=== PATIENT | female | born 1990 | race African-American/Black ===

== ENCOUNTER 2018-03-26 14:10 | Emergency (ER) | payer OTHER ==
[~2018-03-26] VITALS: Ht 162.6 cm; Wt 65.5 kg
[2018-03-26] MEDS ORDERED: METH1TAB40 PO (14:23)
[2018-03-26] MEDS ORDERED: NAPR-885 PO (14:23)
[2018-03-26] MEDS ORDERED: FLAG500T PO (17:40)
[2018-03-26 17:45] VITALS: BP 128/76
[2018-03-26] MEDS ORDERED: DIFL150T PO (17:50)
[2018-03-26 18:47] LABS: CHLAMYDIA DNA AMPLIFICATION POSITIVE (NEGATIVE); GC DNA AMPLIFICATION NEGATIVE (NEGATIVE)
== END 2018-03-26 17:55 | disposition home or self-care (01) ==
LOC: M ED 14:10
DX: N76.0 Acute vaginitis (principal); Z79.1 Long term (current) use of non-steroidal anti-inflammatories (NSAID); Z79.899 Other long term (current) drug therapy

== ENCOUNTER 2018-09-22 12:42 | Inpatient (IN) | payer OTHER ==
[~2018-09-22] VITALS: Ht 162.6 cm; Wt 71.8 kg
[~2018-09-22 12:42] MED LIST: DIFL150T PO; FLAG500T PO; METH1TAB40 PO; NAPR-885 PO
[2018-09-22] MEDS ORDERED: LEXA1TAB PO (12:51)
[2018-09-22] MEDS ORDERED: HYDR-3363 PO (12:51)
[2018-09-22 13:17] LABS: HEMATOCRIT 33.7 % (36.0-47.0); HEMOGLOBIN 10.4 g/dl (12.0-15.5); MEAN CORPUSCULAR HEMOGLOBIN 26.3 pg (27.0-33.0); MEAN CORPUSCULAR HGB CONC 30.9 g/dl (32.0-36.5); MEAN CORPUSCULAR VOLUME 85.3 fl (80.0-96.0); PLATELET COUNT, AUTOMATED 299 10^3/uL (150-450); RED BLOOD COUNT 3.95 10^6/uL (4.00-5.40); WHITE BLOOD COUNT 6.3 10^3/uL (4.0-10.0)
[2018-09-22 13:41] LABS: HCG, SERUM QUALITATIVE NEGATIVE (NEGATIVE)
[2018-09-22 13:51] LABS: ACETAMINOPHEN LEVEL < 2.0 UG/ML (10.0-30.0); ALT/SGPT 12 U/L (12-78); BILIRUBIN,DIRECT 0.2 MG/DL (0.0-0.2); BILIRUBIN,TOTAL 0.4 MG/DL (0.2-1.0); BLOOD UREA NITROGEN 10 MG/DL (7-18); CALCIUM LEVEL 9.1 MG/DL (8.5-10.1); CARBON DIOXIDE LEVEL 26 MEQ/L (21-32); CHLORIDE LEVEL 107 MEQ/L (98-107); ETHYL ALCOHOL (ETHANOL) < 0.003 % (0.000-0.010); GLOMERULAR FILTRATION RATE > 60.0 (>60); GLUCOSE, FASTING 79 MG/DL (70-100); POTASSIUM SERUM 3.6 MEQ/L (3.5-5.1); SALICYLATE LEVEL 2.1 MG/DL (5.0-30.0); SODIUM LEVEL 140 MEQ/L (136-145); THYROID STIMULATING HORMONE 0.406 uIU/ML (0.358-3.740); TOTAL PROTEIN 7.7 GM/DL (6.4-8.2)
[2018-09-22] MEDS ORDERED: TRAZ10TA PO (14:01)
[2018-09-22] MEDS ORDERED: LIDOCAINE 2% 5ML JELLY UROJET TOP ONE (14:45)
[2018-09-22 17:18] LABS: AMPHETAMINES LEVEL URINE NEGATIVE (NEGATIVE); BARBITURATES URINE NEGATIVE (NEGATIVE); BENZODIAZEPINES URINE NEGATIVE (NEGATIVE); CANNABINOIDS URINE NEGATIVE (NEGATIVE); COCAINE METABOLITE URINE NEGATIVE (NEGATIVE); METHADONE URINE NEGATIVE (NEGATIVE); OPIATES URINE NEGATIVE (NEGATIVE); PHENCYCLIDINE URINE NEGATIVE (NEGATIVE)
[2018-09-22] MEDS ORDERED: MOM 30ML SUSPENSION UDC PO PRN (17:45)
[2018-09-22] MEDS ORDERED: MAALOX 30 ML SUSP *UDC PO PRN (17:45)
[2018-09-22] MEDS ORDERED: traZODone 50 MG TAB PO PRN (17:45)
[2018-09-22] MEDS ORDERED: ACETAMINOPHEN TAB 650MG DOSE (2X325MG) PO PRN (17:45)
[2018-09-22 23:14] VITALS: BP 115/75
[2018-09-23 06:41] VITALS: BP 108/53
--- NOTE | 2018-09-23 09:13 | HPEPDOC ---
General Date of Admission Sep 22, 2018 at 17:44 Date of Service: Sep 23, 2018 Attending Physician: TAE OG MD Chief Complaint The patient is a 28-year-old female admitted with a reason for visit of MHE. History of Present Illness [place] Patient is a 28-year-old female, active duty , admitted to inpatient psychiatric unit on account of severe depression. According to mental health HPI "Julieta is a 28 -year-old , female, who was transported from [facility] via EMS due to Julieta apparently having a acute exacerbation of her depression. Per her therapist, Julieta reported feeling like she didn't want to live anymore, that she does not feel safe, and that she has anhedonia, poor motivation, insomnia, racing thoughts, and general feelings of emotional numbness. Once admitted Julieta began denying any past or current SI/HI and just elaborated that she was having a bad day. Per ED, Julieta admitted to having a history of depression and anxiety related to her enlistment with the [employer]. 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 Home Medications Scheduled Escitalopram Oxalate (Lexapro) 10 Mg Tablet, 30 MG PO DAILY, (Reported) Scheduled PRN Hydroxyzine HCl (Hydroxyzine HCl) 25 Mg Tablet, 50 MG PO QID PRN for ANXIETY, (Reported) Trazodone HCl (Trazodone HCl) 100 Mg Tablet, 100 MG PO QHS PRN for SLEEP, (Reported) Allergies Coded Allergies: latex (Verified Allergy, Mild, Rash and Itching, 09/22/18) A-FIB/CHADSVASC A-FIB History Current/History of A-Fib/PAF?: No Current PO Anticoag Therapy: No Review of Systems Other systems Examination was declined by patient Physical Examination Other physical findings Examination was declined by patient Vital Signs Vital Signs Date Time Temp Pulse Resp B/P (MAP) Pulse Ox O2 Delivery O2 Flow Rate FiO2 09/23/18 06:41 98.7 70 16 108/53 (71) 09/22/18 23:14 98 09/22/18 14:05 Room Air Laboratory Data Labs 24H Laboratory Tests 2 09/22/18 13:03: Nucleated Red Blood Cells % (auto) 0.0, Anion Gap 7L, Glomerular Filtration Rate > 60.0, Calcium Level 9.1, Aspartate Amino Transf (AST/SGOT) 10, Alanine Aminotransferase (ALT/SGPT) 12, Alkaline Phosphatase 55, Total Bilirubin 0.4, Direct Bilirubin 0.2, Total Protein 7.7, Albumin 4.0, Albumin/Globulin Ratio 1.08, Thyroid Stimulating Hormone (TSH) 0.406, Human Chorionic Gonadotropin, Qual NEGATIVE, Salicylates Level 2.1L, Acetaminophen Level < 2.0L, Ethyl Alcohol Level < 0.003 09/22/18 16:45: Urine Amphetamines Screen NEGATIVE, Urine Benzodiazepines Screen NEGATIVE, Urine Opiates Screen NEGATIVE, Urine Methadone Screen NEGATIVE, Urine Barbiturates Screen NEGATIVE, Urine Phencyclidine Screen NEGATIVE, Urine Cocaine Metabolite Screen NEGATIVE, Urine Cannabinoids Screen NEGATIVE CBC/BMP Laboratory Tests 09/22/18 13:03 Red Blood Count 3.95 L, Mean Corpuscular Volume 85.3, Mean Corpuscular Hemoglobin 26.3 L, Mean Corpuscular Hemoglobin Concent 30.9 L, Red Cell Distribution Width 18.2 H Assessment/Plan Admitted on account of depression Plan Medical examination evaluation was declined by patient At this time, it would seem patient has no acute medical problems or underlying comorbidities requiring active follow-up. Acute mental problems are managed by primary team Medical team will sign off, please re-consult as needed. Plan / VTE VTE Prophylaxis Ordered?: No VTE Exclusion Mechanical Proph: Low Risk for VTE TRAVON JARQUIN Sep 23, 2018 09:13
[2018-09-23] MEDS ORDERED: traZODone 100 MG TAB PO PRN (11:15)
[2018-09-23] MEDS ORDERED: hydrOXYzine 25 MG TAB PO PRN (11:15)
--- NOTE | 2018-09-23 11:29 | MHHPEPDOC ---
General Legal Status: 9.39 Chief Complaint "Got myself into a dark place. Might have filled out the wrong option on the depression screening form at [facility]. Therapist said I have to go to the hospital" History of Present Illness HISTORY OF THE PRESENT ILLNESS: Julieta is a 28 -year-old , female, who was transported from [facility] via EMS due to Julieta apparently having a acute exacerbation of her depression. Per her therapist, Julieta reported feeling like she didn't want to live anymore, that she does not feel safe, and that she has anhedonia, poor motivation, insomnia, racing thoughts, and general feelings of emotional numbness. Once admitted Julieta began denying any past or current SI/HI and just elaborated that she was having a bad day. Per ED, Julieta admitted to having a history of depression and anxiety related to her enlistment with the [employer]. She is currently an E1 despite 3 years of service due to having received multiple negative counseling evaluations. Julieta has been seeing [facility] for anxiety and depression. Psychiatric Review of Systems Depression (2 or more weeks): denies (history of depression and axiety but not currently feeling that way. ) Rosalie (4 or more days of): grandiosity Psychosis: denies, other PTSD: denies Anxiety: denies Past Psychiatric History Previous Psychiatric Diagnosis: Depression and Anxiety. Diagnosed by [facility] Previous Psychiatric Admissions: Denies Suicide Attempts: Denies Psychiatric Follow-up: [facility] Psychiatric medications: Currently on Hydroxyzine HCl 25mg tablets PRN, Escitalopram Oxalate 10mg tablets QD, and Trazodone HCl 100mg tablets PRN, Lexapro 10 mg TID Past Medical History Head Injury: No Seizures: No Hospitalizations: No Surgeries: Yes (tonsilectomy, wisdom teeth extraction) Family Medical/Psychiatric HX Psychiatric Disorders: No Addiction: No Suicide Attemps/Completions: No Addiction History denies Social History Childhood: Born in [facility]. Raised in [place] and [place], [place]. Describes childhood as "good". Raised in single mother household with her 3 other siblings. Abuse/Trauma: Denies Current Living Situation: [place]-post in [facility] Education: [employer], [employer], [employer]. [employer]. Employment: E1 (unit supply chain tech) for 2 years. Social Support: Friends around post. Goes to [facility]. Family is in [place]. Legal: Denies. Article 15 for 3 past negative counselling. Marital: Single and no children Mental Status Examination General Appearance: well groomed, hospital scubs/clothing Build: average Demeanor: average Eye Contact: average Activity: average Behavior: cooperative Speech: clear, rapid, normal volume Mood: euthymic, elevated Mood "i'm good" Affect: full Thought Process: logical/linear Thought Content (Delusions): none reported Thought Content (Other): none reported Thought Content (Aggressive): none reported Perception (Hallucinations): none reported Perception (Other): none reported Cognition (Impairment of): none reported Cognition(Intelligence Est.): average Oriented: Awake, Alert, Oriented times three Insight: fair Judgment: Fair Psychosis: Denies Diagnoses Unspecified depression and anxiety A-FIB/CHADSVASC A-FIB History Current/History of A-Fib/PAF?: No Current PO Anticoag Therapy: No Age/Risk Factor Scoring CHADSVASC: CHADSVASC Response (Comments) Value Age Risk Factor Age < 65 years old 0 Gender Risk Factor Female 1 Hx of CHF No 0 Hx of HTN No 0 Hx of Stroke/TIA/or VTE No 0 Hx of Diabetes No 0 Hx of Vascular Disease No 0 Total 1 Treatment Treatment ordered: NONE Reason Anticoagulant not given: Not indicated/Gevaz1iefd Assessment Julieta states that she was in "a dark place" yesterday when she went to her therapist at [facility]. She states she might have selected the wrong option on a depression screening form. Her therapist then said she needed to go to the hospital. She denies any current SI or HI, hallucinations or delusions. She wanted to go home today but will be in compliance until Wednesday until discharge. Generally, she has a full affect, is cooperative, and has a logical thought process. Her Misty came into the newsome today to see how she is doing. Feels safe here. Agreeable to restarting outpatient meds that she's tolerating well and finding beneficial. Initial Treatment Plan 1. Patient was admitted on a 9.39 status. 2. Complete history was obtained. 3. With patients permission, family will be contacted and database will be expanded. 4. Patients medication regimen will be reviewed and changed accordingly. 5. Patient will be provided with protected environment. 6. Patient will be treated with individual, group, and milieu therapies. 7. Patient will receive supportive psych-education. 8. Discharge planning will commence immediately. 9. Outpatient follow-up treatment will be strongly recommended. 10. The initial treatment plan will focus initially on: * Depression. * Risk for suicide. * Substance abuse. 11. restart outpatient meds. ESTIMATED LENGTH OF STAY: 3-5 DAYS. TIME SPENT COUNSELING AND COORDINATING INITIAL CARE: 60 minutes. Vital Signs Vital Signs Date Time Temp Pulse Resp B/P (MAP) Pulse Ox O2 Delivery O2 Flow Rate FiO2 09/23/18 06:41 98.7 70 16 108/53 (71) 09/22/18 23:14 98 09/22/18 14:05 Room Air Laboratory Data 24H Labs Laboratory Tests 2 09/22/18 13:03: Nucleated Red Blood Cells % (auto) 0.0, Anion Gap 7L, Glomerular Filtration Rate > 60.0, Calcium Level 9.1, Aspartate Amino Transf (AST/SGOT) 10, Alanine Aminotransferase (ALT/SGPT) 12, Alkaline Phosphatase 55, Total Bilirubin 0.4, Direct Bilirubin 0.2, Total Protein 7.7, Albumin 4.0, Albumin/Globulin Ratio 1.08, Thyroid Stimulating Hormone (TSH) 0.406, Human Chorionic Gonadotropin, Qual NEGATIVE, Salicylates Level 2.1L, Acetaminophen Level < 2.0L, Ethyl Alcohol Level < 0.003 09/22/18 16:45: Urine Amphetamines Screen NEGATIVE, Urine Benzodiazepines Screen NEGATIVE, Urine Opiates Screen NEGATIVE, Urine Methadone Screen NEGATIVE, Urine Barbiturates Screen NEGATIVE, Urine Phencyclidine Screen NEGATIVE, Urine Cocaine Metabolite Screen NEGATIVE, Urine Cannabinoids Screen NEGATIVE CBC/BMP Laboratory Tests 09/22/18 13:03 Red Blood Count 3.95 L, Mean Corpuscular Volume 85.3, Mean Corpuscular Hemoglobin 26.3 L, Mean Corpuscular Hemoglobin Concent 30.9 L, Red Cell Distribution Width 18.2 H Medications Scheduled Escitalopram Oxalate (Lexapro) 10 Mg Tablet, 30 MG PO DAILY, (Reported) Scheduled PRN Hydroxyzine HCl (Hydroxyzine HCl) 25 Mg Tablet, 50 MG PO QID PRN for ANXIETY, (Reported) Trazodone HCl (Trazodone HCl) 100 Mg Tablet, 100 MG PO QHS PRN for SLEEP, (Reported) Allergies Coded Allergies: latex (Verified Allergy, Mild, Rash and Itching, 09/22/18) BURTON HAYES OMS-3 Sep 23, 2018 07:42 SKYE RANDOLPH DO Sep 23, 2018 11:29
[2018-09-23] MEDS ORDERED: ESCITALOPRAM OXALATE 10 MG TAB (LEXAPRO) PO ONE (12:00)
[2018-09-23 18:08] VITALS: BP 124/69
[2018-09-24 06:41] VITALS: BP 113/53
[2018-09-24] MEDS: ESCITALOPRAM OXALATE 10 MG TAB (LEXAPRO) PO SCH (09:50)
--- NOTE | 2018-09-24 11:42 | MHIPNPDOC ---
[facility] Progress Note Progress Note DATE OF SERVICE: 09/24/18 HISTORY: As per Dr. Zhou VITAL SIGNS: See below. NEW TEST RESULTS: See below CURRENT MEDICATIONS: See below. MENTAL STATUS EXAMINATION: Patient is a 28 year old female, who is dressed in hospital clothes, with good hygiene and grooming Speech: Is intact. Language skills are good. Thought processes including: linear, coherent. Thought content: goal directed, denies SI, denies HI, denies delusions. Abstract reasoning, and computation: good Description of associations: intact Description of abnormal or psychotic thoughts: denies AV hallucinations, denies delusions, not responding to internal stimuli. Judgment: fair. Insight: fair. Orientation: x 3. Recent and remote memory: intact. Attention span and concentration: good. Language: normal, no visible disabilities Fund of knowledge: average. Mood: "I'm good". Affect: congruent witn mood, appropriate, reactive. DIAGNOSES: 1. Unspecified depressive diosrder 2. Unspecified anxiety disorder ASSESSMENT: patient is pleasant and cooperative, anxious about being discharged. She is future orientated, not suicidal, not homicidal, not psychotic. She wants to be discharged, wants to go to the gym. Denies medication side effects, she has been on lexapro for 5 months. MANAGEMENT PLAN: As per Dr. Zhou TIME SPENT: 20 minutes. Vital Signs Vital Signs Date Time Temp Pulse Resp B/P (MAP) Pulse Ox O2 Delivery O2 Flow Rate FiO2 09/24/18 06:41 98.7 56 12 113/53 (73) 09/22/18 23:14 98 09/22/18 14:05 Room Air Current Medications Current Medications Medications (Trade) Dose Ordered Sig/Chad Route PRN Reason Start Time Stop Time Status Last Admin Dose Admin Acetaminophen (Tylenol Tab) 650 mg Q6HP PRN PO HEADACHE or DISCOMFORT 09/22/18 17:45 Al Hydrox/Mg Hydrox/Simethicone (Mylanta) 30 ml Q4HP PRN PO HEARTBURN/INDIGESTION 09/22/18 17:45 Escitalopram Oxalate (Lexapro) 30 mg DAILY PO 09/24/18 09:00 09/24/18 09:50 Home Med (Med Rec Complete!) ASDIRECTED XX 09/22/18 14:15 09/22/18 14:15 DC Hydroxyzine HCl (Atarax) 25 mg QHSP PRN PO INSOMNIA 09/23/18 11:15 Magnesium Hydroxide (Milk Of Magnesia) 30 ml DAILYPRN PRN PO CONSTIPATION 09/22/18 17:45 Miscellaneous (Unresolved Clarification Entry) SEE LABEL COMMENTS DAILY XX 09/23/18 09:00 09/23/18 12:07 DC Trazodone HCl (Desyrel) 50 mg QHSP PRN PO INSOMNIA 09/22/18 17:45 Cancel Trazodone HCl (Desyrel) 100 mg QHSP PRN PO INSOMNIA 09/23/18 11:15 Allergies Coded Allergies: latex (Verified Allergy, Mild, Rash and Itching, 09/22/18) ALMA CORTEZ MD Sep 24, 2018 11:41
[2018-09-24 18:00] VITALS: BP 132/72
[2018-09-25 06:30] VITALS: BP 111/59
[2018-09-25] MEDS: ESCITALOPRAM OXALATE 10 MG TAB (LEXAPRO) PO SCH (08:47)
--- NOTE | 2018-09-25 13:16 | MHIPNPDOC ---
[facility] [place] Progress Note DATE OF SERVICE: 09/25/18 HISTORY: As per Dr. Zhou, "Julieta is a 28 -year-old , female, who was transported from [facility] via EMS due to Julieta apparently having a acute exacerbation of her depression. Per her therapist, Julieta reported feeling like she didn't want to live anymore, that she does not feel safe, and that she has anhedonia, poor motivation, insomnia, racing thoughts, and general feelings of emotional numbness. Once admitted Julieta began denying any past or current SI/HI and just elaborated that she was having a bad day. Per ED, Julieta admitted to having a history of depression and anxiety related to her enlistment with the [employer]. She is currently an E1 despite 3 years of service due to having received multiple negative counseling evaluations. Julieta has been seeing [facility] for anxiety and depression." VITAL SIGNS: See below. NEW TEST RESULTS: See below CURRENT MEDICATIONS: See below. MENTAL STATUS EXAMINATION: Patient is a 28 year old female, who is dressed in hospital clothes, with good hygiene and grooming Speech: Is intact. Language skills are good. Thought processes including: linear, coherent. Thought content: goal directed, denies SI, denies HI, denies delusions. Abstract reasoning, and computation: good Description of associations: intact Description of abnormal or psychotic thoughts: denies AV hallucinations, denies delusions, not responding to internal stimuli. Judgment: fair. Insight: fair. Orientation: x 3. Recent and remote memory: intact. Attention span and concentration: good. Language: normal, no visible disabilities Fund of knowledge: average. Mood: "I'm OK". Affect: congruent witn mood, appropriate, reactive. DIAGNOSES: 1. Unspecified depressive disorder 2. Unspecified anxiety disorder ASSESSMENT: Patient eating in her room as I walked in. she says she is feling Ok and she is ready to leave, she only has problems with the food because she has ordered something different and this is the second day she gets the wrong food. Other than that, she has slept well, her appetite is OK. she denies SI, dnies HI, denies psychosis and she is observed to be active, in a good mood. she is not suicidal, not homicidal, not responding to internal stimuli. MANAGEMENT PLAN: As per Dr. Zhou TIME SPENT: 20 minutes. Vital Signs Vital Signs Date Time Temp Pulse Resp B/P (MAP) Pulse Ox O2 Delivery O2 Flow Rate FiO2 09/25/18 06:30 97.5 69 12 111/59 (76) 09/22/18 23:14 98 09/22/18 14:05 Room Air Current Medications Current Medications Medications (Trade) Dose Ordered Sig/Chad Route PRN Reason Start Time Stop Time Status Last Admin Dose Admin Acetaminophen (Tylenol Tab) 650 mg Q6HP PRN PO HEADACHE or DISCOMFORT 09/22/18 17:45 Al Hydrox/Mg Hydrox/Simethicone (Mylanta) 30 ml Q4HP PRN PO HEARTBURN/INDIGESTION 09/22/18 17:45 Escitalopram Oxalate (Lexapro) 30 mg DAILY PO 09/24/18 09:00 09/25/18 08:47 Home Med (Med Rec Complete!) ASDIRECTED XX 09/22/18 14:15 09/22/18 14:15 DC Hydroxyzine HCl (Atarax) 25 mg QHSP PRN PO INSOMNIA 09/23/18 11:15 Magnesium Hydroxide (Milk Of Magnesia) 30 ml DAILYPRN PRN PO CONSTIPATION 09/22/18 17:45 Miscellaneous (Unresolved Clarification Entry) SEE LABEL COMMENTS DAILY XX 09/23/18 09:00 09/23/18 12:07 DC Trazodone HCl (Desyrel) 50 mg QHSP PRN PO INSOMNIA 09/22/18 17:45 Cancel Trazodone HCl (Desyrel) 100 mg QHSP PRN PO INSOMNIA 09/23/18 11:15 Allergies Coded Allergies: latex (Verified Allergy, Mild, Rash and Itching, 09/22/18) ALMA CORTEZ MD Sep 25, 2018 12:09
[2018-09-25 18:00] VITALS: BP 130/70
[2018-09-26 06:39] VITALS: BP 104/65
[2018-09-26] MEDS: ESCITALOPRAM OXALATE 10 MG TAB (LEXAPRO) PO SCH (08:41)
--- NOTE | 2018-09-26 08:59 | MHDSPDOC ---
[facility] Discharge Summary Discharge Summary DATE OF ADMISSION: Sep 22, 2018 at 5:44 pm DATE OF DISCHARGE: Sep 26, 2018 DISCHARGE DIAGNOSES: 1. Unspecified depressive disorder 2. Unspecified anxiety disorder REASON FOR ADMISSION: Julieta is a 28 -year-old , female, who was transported from [facility] via EMS due to Julieta apparently having a acute exacerbation of her depression. Per her therapist, Julieta reported feeling like she didn't want to live anymore, that she does not feel safe, and that she has anhedonia, poor motivation, insomnia, racing thoughts, and general feelings of emotional numbness. Once admitted Julieta began denying any past or current SI/HI and just elaborated that she was having a bad day. Per ED, Julieta admitted to having a history of depression and anxiety related to her enlistment with [employer]. She is currently an E1 despite 3 years of service due to having received multiple negative counseling evaluations. Julieta has been seeing [facility] for anxiety and depression. CONSULTANTS INVOLVED: none TREATMENT AND PROGRESS ON THE UNIT : Pt was admitted to [facility], seen for psychiatric assessment and monitored for safety as she did not appear to need any fpc psychotropic medication and preferred to try outpatient therapy first. She was provided trazodone 50mg qhs prn insomnia. She attended groups daily during her stay. Her symptoms improved with treatment. On day of discharge she denied depression, anxiety, insomnia, SI/HI, hallucinations, delusions. She was discharged home with her Misty with follow-up at [facility]. She felt safe for discharge. DISCHARGE ASSESSMENT: Pt seen and states that her mood is "good" and she's looking forward to going home with her Misty today. States she's being social on the milieu which is beneficial. States she slept well last night. She is attending groups and finding them helpful. She denies depression, anxiety, insomnia, SI/HI, hallucinations, delusions. Pt feels safe here. MENTAL STATUS EXAMINATION ON DISCHARGE: Patient is a 28 year old female, who is dressed in hospital clothes, with good hygiene and grooming Speech: Is intact. Language skills are good. Thought processes including: linear, coherent. Thought content: goal directed, denies SI, denies HI, denies delusions. Abstract reasoning, and computation: good Description of associations: intact Description of abnormal or psychotic thoughts: denies AV hallucinations, denies delusions, not responding to internal stimuli. Judgment: good Insight: good Orientation: x 3. Recent and remote memory: intact. Attention span and concentration: good. Language: normal, no visible disabilities Fund of knowledge: average. Mood: "good". Affect: congruent with mood, appropriate, reactive. MEDICATIONS ON DISCHARGE: none PLAN/FOLLOWUP ARRANGEMENTS: D/c home with [facility] with follow-up at [facility] The amount of time spent in the coordination of care for this patient was approximately 30 minutes. Vital Signs/I&Os Vital Signs Date Time Temp Pulse Resp B/P (MAP) Pulse Ox O2 Delivery O2 Flow Rate FiO2 09/26/18 06:39 97.7 59 12 104/65 (78) 09/22/18 23:14 98 09/22/18 14:05 Room Air Medications Scheduled Escitalopram Oxalate (Lexapro) 10 Mg Tablet, 30 MG PO DAILY, (Reported) Scheduled PRN Hydroxyzine HCl (Hydroxyzine HCl) 25 Mg Tablet, 50 MG PO QID PRN for ANXIETY, (Reported) Trazodone HCl (Trazodone HCl) 100 Mg Tablet, 100 MG PO QHS PRN for SLEEP, (Reported) Allergies Coded Allergies: latex (Verified Allergy, Mild, Rash and Itching, 09/22/18) SKYE RANDOLPH DO Sep 26, 2018 8:59 am
== END 2018-09-26 12:22 | disposition home or self-care (01) | DRG 881 ==
LOC: M ED 12:42 → M ED INP 17:44 → M PSY 23:00
PROVIDERS: ADMIT Psychiatry & Neurology Psychiatry; ATTEND Psychiatry & Neurology Psychiatry
DX: F32.9 Major depressive disorder, single episode, unspecified (principal); F41.9 Anxiety disorder, unspecified; Z79.899 Other long term (current) drug therapy; Z91.040 Latex allergy status

== ENCOUNTER → 2024-11-18 | Outpatient (RCR) ==
[~2024-11-18] MED LIST changes: +HYDR-3363 PO; +LEXA1TAB PO; +METH-1164 PO; -METH1TAB40 PO; +TRAZ1TAB12 PO
== END ==
LOC: M EMPSKH 11-01 14:50
PROVIDERS: ATTEND Family Medicine
DX: Z20.828 Contact with and (suspected) exposure to other viral communicable diseases (principal)